=== PATIENT | male | born 1995 | race Caucasian/White ===

== ENCOUNTER 2025-02-02 04:54 | Emergency (ER) | payer MEDICAID ==
[~2025-02-02] VITALS: Ht 170.2 cm; Wt 110.0 kg
[2025-02-02 06:06] LABS: CALCIUM, TOTAL 8.9 mg/dL (8.8-10.5); CREATININE 0.61 mg/dL (0.60-1.30); GLOMERULAR FILTR. RATE CALC > 60 mL/min (>60); GLUCOSE,RANDOM 100 mg/dL (70-110); SODIUM SERUM 135 mmol/L (136-145); UREA NITROGEN, BLOOD 8 mg/dL (7-18)
[2025-02-02 06:07] LABS: PLATELET COUNT (AUTO) 187 K/uL (150-450); RED BLOOD CELL COUNT(AUTO) 4.39 MIL/uL (4.50-5.90); RED CELL DISTRIBUTION WIDTH 12.9 % (11.5-14.5); WHITE BLOOD COUNT (AUTO) 7.3 K/uL (4.5-11.0)
[2025-02-02 06:10] LABS: APPEARANCE,URINE CLEAR (CLEAR); GLUCOSE, URINE (UA) NEGATIVE (NEGATIVE); LEUKOCYTE ESTERASE ,URINE NEGATIVE (NEGATIVE); NITRATE,URINE NEGATIVE (NEGATIVE); OCCULT BLOOD,URINE NEGATIVE (NEGATIVE); SPECIFIC GRAVITIY, URINE 1.009 (1.003-1.030)
[2025-02-02 08:11] VITALS: BP 129/84; PULSE 65; RESP 16; TEMP 98.2; O2SAT 99
[2025-02-02] MEDS: MAGNESIUM CITRATE [LEMON] 300 ML ORAL SOLUTION PO ONE (08:12)
[2025-02-04] MEDS ORDERED: ACET-66 PO (17:49)
[2025-02-04] MEDS ORDERED: OMEP-148 PO (17:49)
[2025-02-04] MEDS ORDERED: DIPH50CA37 PO (17:49)
[2025-02-04] MEDS ORDERED: POLY119P3 PO (17:49)
== END 2025-02-02 08:18 | disposition home or self-care (01) ==
LOC: EMS 05:10
DX: K59.00 Constipation, unspecified (principal); G47.00 Insomnia, unspecified; F41.9 Anxiety disorder, unspecified
CPT/HCPCS: 74018; 80048; 81003; 83690; 85025; 99284; 36415-L1; 36415-TC